=== PATIENT | female | born 1965 | race Caucasian/White ===

== ENCOUNTER → 2016-11-25 | Outpatient (CLI) | payer MEDICAID ==
[2016-11-25 19:06] LABS: Basophils # (A) 0.1 k/uL (0-0.2); Basophils % (A) 0 %; CH 28.8; CHCM 33.1; Eosinophils % (A) 0 %; HCT 39.3 % (34.0-46.0); HDW 2.58; HGB 13.4 gm/dL (11.4-16.0); Luc # (Auto) 0.09; Luc % (Auto) 1; Lymphocytes # (A) 1.6 k/uL (1.0-4.8); Lymphocytes % (A) 13 %; MCHC 34.2 g/dL (31.0-37.0); MCV 87.7 fL (80.0-100.0); Mean Platelet Volume 8.5; Monocytes # (A) 0.8 k/uL (0-1.0); Monocytes % (A) 6 %; Neutrophils # (A) 10.1 k/uL (1.3-7.7); Neutrophils % (A) 80 %; RBC 4.48 m/uL (3.80-5.40); RDW 12.4 % (11.5-15.5); WBC 12.6 k/uL (3.8-10.6); WBC (Perox) 12.97
[2016-11-25 19:12] LABS: ALT 37 U/L (9-52); AST 28 U/L (14-36); Alkaline Phosphatase 81 U/L (38-126); Anion Gap 9 mmol/L; Blood Urea Nitrogen 11 mg/dL (7-17); Calcium 9.3 mg/dL (8.4-10.2); Carbon Dioxide 28 mmol/L (22-30); Chloride 103 mmol/L (98-107); Glucose 80 mg/dL (74-99); Non-African American GFR(MDRD) >60 (>60 ml/min/1.73 sqM); Potassium 4.1 mmol/L (3.5-5.1); Sodium 140 mmol/L (137-145); Total Bilirubin 0.8 mg/dL (0.2-1.3); Total Protein 7.4 g/dL (6.3-8.2)
== END ==
LOC: MMGSC 11:26
PROVIDERS: ATTEND Family Medicine
DX: R10.9 Unspecified abdominal pain (principal)
CPT/HCPCS: 36415; 80053; 85025; 87086

== ENCOUNTER → 2016-11-26 | Outpatient (CLI) | payer MEDICAID ==
--- NOTE | 2016-11-26 09:34 | US ---
EXAMINATION TYPE: US abdomen complete DATE OF EXAM: 11/26/2016 COMPARISON: CLINICAL HISTORY: R10 abd pain. Generalized cramping and spasm, worse after eating EXAM MEASUREMENTS: Liver Length: 14.7 cm Gallbladder Wall: 0.2 cm CHD: 0.4 cm Spleen: 10.5 cm Right Kidney: 10.7 x 5.1 x 4.4 cm Left Kidney: 10.7 x 5.1 x 4.6 cm Pancreas: wnl Liver: wnl Gallbladder: wnl Evidence for sonographic Park's sign: neg CHD: wnl Spleen: wnl Right Kidney: wnl Left Kidney: wnl Upper IVC: wnl Abd Aorta: no AAA seen The pancreas is unremarkable. The liver is normal in size without biliary dilatation. The gallbladder is normal without cholelithiasis. The gallbladder wall measures 1.9 mm. The distal co mmon hepatic duct measures 3.5 mm. The spleen is normal in size. Both kidneys are normal. Visualized portions of aorta and IVC are normal. IMPRESSION: NORMAL ABDOMINAL ULTRASOUND.
--- NOTE | 2016-11-26 09:35 | US ---
EXAMINATION TYPE: US pelvic complete DATE OF EXAM: 11/26/2016 COMPARISON: NONE CLINICAL HISTORY: 51-year-old female R10 abd pain. Generalized cramping TECHNIQUE: Transabdominal (TA) Date of LMP: PM x 2 years, FINDINGS: Uterus: Anteverted measuring 8.1 x 3.9 x 3.0 cm. Myometrium is slightly heterogeneous. Endometrial Stripe: 0.3 cm, within normal limits for a postmenopausal female. Right Ovary: 2.1 x 1.2 x 1.3 cm Left Ovary: 2.5 x 1.2 x 1.1 cm Normal and small for a postmenopausal female. No evident adnexal abnormality or cul-de-sac free fluid. IMPRESSION: Slight myometrial heterogeneity probably on a technical basis. No specific abnormality seen in the pe lvis with transabdominal scanning.
== END | disposition home or self-care (01) ==
LOC: RADUSMAIN 08:02
PROVIDERS: ATTEND Family Medicine
DX: N85.8 Other specified noninflammatory disorders of uterus (principal); R10.9 Unspecified abdominal pain
CPT/HCPCS: 76700; 76856

== ENCOUNTER → 2016-12-02 | Outpatient (CLI) | payer MEDICAID ==
[2016-12-02 18:38] LABS: Basophils % (A) 1 %; CH 29.3; CHCM 33.4; Eosinophils # (A) 0.1 k/uL (0-0.7); Eosinophils % (A) 1 %; HCT 38.8 % (34.0-46.0); HDW 2.85; HGB 12.7 gm/dL (11.4-16.0); Luc # (Auto) 0.13; Luc % (Auto) 2; Lymphocytes # (A) 1.8 k/uL (1.0-4.8); Lymphocytes % (A) 20 %; MCHC 32.9 g/dL (31.0-37.0); MCV 88.2 fL (80.0-100.0); Mean Platelet Volume 7.5; Monocytes # (A) 0.5 k/uL (0-1.0); Monocytes % (A) 5 %; Neutrophils # (A) 6.3 k/uL (1.3-7.7); Neutrophils % (A) 71 %; RDW 13.5 % (11.5-15.5); WBC 8.9 k/uL (3.8-10.6); WBC (Perox) 9.24
== END | disposition home or self-care (01) ==
LOC: MMGSC 16:20
PROVIDERS: ATTEND Family Medicine
DX: R79.9 Abnormal finding of blood chemistry, unspecified (principal)
CPT/HCPCS: 36415; 85025

== ENCOUNTER → 2018-10-23 | Outpatient (CLI) | payer MEDICAID ==
--- NOTE | 2018-10-24 10:55 | MM ---
Reason for exam: screening (asymptomatic). Last mammogram was performed 8 years and 4 months ago. Physical Findings: A clinical breast exam by your physician is recommended on an annual basis and results should be correlated with mammographic findings. MG 3D Screening Mammo W/Cad Bilateral CC and MLO view(s) were taken. Prior study comparison: June 24, 2010, CAD bilateral diagnostic mammogram. December 13, 2007, bilateral digital screening mammogram. The breast tissue is heterogeneously dense. This may lower the sensitivity of mammography. There is no discrete abnormality. No significant changes when compared with prior studies. ASSESSMENT: Negative, BI-RAD 1 RECOMMENDATION: Routine screening mammogram of both breasts in 1 year.
== END | disposition home or self-care (01) ==
LOC: RADMAMWWP 11:37
PROVIDERS: ATTEND Obstetrics & Gynecology
DX: Z12.31 Encounter for screening mammogram for malignant neoplasm of breast (principal)
CPT/HCPCS: 77063; 77067